=== PATIENT | male | born 1950 | race Caucasian/White ===

== ENCOUNTER 2019-05-25 06:13 | Inpatient (IN) ==
[2019-05-25] MEDS ORDERED: Ringers Solution, Lactated 1,000 ML IVC SCH ×2 (07:15→12:27)
[2019-05-25] MEDS ORDERED: Albuterol 2.5 MG/3 ML NEBULIZER IH PRN (07:44)
[2019-05-25] MEDS ORDERED: Acetaminophen IV 1,000 MG/100 ML INFUS..BTL IVPB ONE (08:28)
[2019-05-25] MEDS ORDERED: Famotidine 20 MG/2 ML VIAL IVP ONE (08:28)
[2019-05-25] MEDS ORDERED: Pregabalin 75 MG CAPSULE PO ONE (08:29)
[2019-05-25] MEDS ORDERED: *HR* FentaNYL (PF) 100 MCG/2 ML VIAL ONE (08:46)
[2019-05-25] MEDS ORDERED: *HR* Propofol 200 MG/20 ML VIAL IVP ONE (08:47)
[2019-05-25] MEDS ORDERED: *HR* Midazolam HCl 2 MG/2 ML VIAL ONE (08:47)
[2019-05-25] MEDS ORDERED: *HR* PHENYLEPHRINE 1,000 MCG/10 ML SYRINGE IVP ONE ×3 (08:54→10:38)
[2019-05-25] MEDS ORDERED: Ondansetron 4 MG/2 ML VIAL ONE (08:59)
[2019-05-25] MEDS ORDERED: Lidocaine -MPF 2% 2 ML VIAL ONE (08:59)
[2019-05-25] MEDS ORDERED: Dexamethasone 4 MG/ML VIAL ONE (08:59)
[2019-05-25] MEDS ORDERED: Calcium Gluconate 1,000 MG/10 ML VIAL ONE (09:06)
[2019-05-25] MEDS ORDERED: Ethanol\\Acetic Acid\\Na Ace\\Ben 1,000 ML IRRIG.SOLN IR ONE (09:24)
[2019-05-25] MEDS ORDERED: Propofol 500 MG/50 ML INFUS..BTL ONE (09:25)
[2019-05-25] MEDS ORDERED: *HR* Phenylephrine 10 MG/ML VIAL ONE (10:17)
[2019-05-25] MEDS ORDERED: EPHEDrine 50 MG/ML VIAL ONE (10:29)
[2019-05-25 11:55] LABS: Hematocrit 30.4 % (37.5-50.1); Hemoglobin 10.1 g/dL (12.9-16.9)
[2019-05-25] MEDS ORDERED: *HR* Promethazine 25 MG/ML VIAL IVP PRN (12:27)
[2019-05-25] MEDS ORDERED: Nitroglycerin 0.4 MG TAB.SUBL SL PRN (12:27)
[2019-05-25] MEDS ORDERED: traMADol 50 MG TABLET PO PRN (12:27)
[2019-05-25] MEDS ORDERED: D5% in Water 1,000 ML IVC PRN (12:27)
[2019-05-25] MEDS ORDERED: (Dulaglutide [Trulicity] 1.5 MG) SQ SCH (12:27)
[2019-05-25] MEDS ORDERED: Ascorbic Acid 500 MG TABLET PO SCH (12:27)
[2019-05-25] MEDS ORDERED: Fluticasone Propionate Nasal 50 MCG/SPRAY BOTTLE NS PRN (12:27)
[2019-05-25] MEDS ORDERED: Ondansetron 4 MG/2 ML VIAL IVP PRN (12:27)
[2019-05-25] MEDS ORDERED: *HR* Dextrose 50 % in Water (Syg) 50 ML SYRINGE IVP PRN (12:27)
[2019-05-25] MEDS ORDERED: Sennosides 8.6 MG TABLET PO PRN (12:27)
[2019-05-25] MEDS ORDERED: Dextrose Gel 15 GM/37.5 ML TUBE PO PRN ×2 (12:27)
[2019-05-25] MEDS ORDERED: Temazepam 15 MG CAPSULE PO PRN (12:27)
[2019-05-25] MEDS ORDERED: NON-FORMULARY MEDICATION 1 EACH EACH (Omega-3/Dha/Epa/Fish Oil [Fish Oil 1,000 Mg Softgel] PO SCH (12:27)
[2019-05-25] MEDS ORDERED: [UNRECOGNIZED DRUG - OTHER] PO SCH (12:27)
[2019-05-25] MEDS ORDERED: Naloxone 0.4 MG/ML INJ IVP PRN (12:27)
[2019-05-25] MEDS ORDERED: MOM Conc 10 ML UD.LIQ PO PRN (12:27)
[2019-05-25] MEDS: Insulin LISPRO 300 UNITS/3 ML VIAL SQ SCH ×3 (12:30→21:37)
[2019-05-25] MEDS: *HR* OxyCODONE Immed Rel 5 MG TABLET PO PRN ×2 (12:39→18:13)
[2019-05-25] MEDS: Cholecalciferol (D-3) 1,000 UNIT (25MCG) TABLET PO SCH (13:33)
[2019-05-25] MEDS: Ascorbic Acid 500 MG TABLET PO SCH (13:34)
[2019-05-25] MEDS: Multivit/Ca/Min/Fe/FA 1 TAB TABLET PO SCH (13:34)
[2019-05-25] MEDS: Psyllium 1 PACKET POWD.PACK PO SCH ×3 (13:34→21:31)
[2019-05-25] MEDS: Gabapentin 300 MG CAPSULE PO SCH ×3 (13:34→21:31)
[2019-05-25] MEDS: Magnesium Oxide 400 MG TABLET PO SCH ×4 (13:41→21:31)
[2019-05-25] MEDS: Budesonide/Formoterol 80/4.5 1 PUFF INH IH SCH ×2 (16:40→21:47)
[2019-05-25] MEDS ORDERED: NON-FORMULARY MEDICATION 1 EACH EACH (Cetirizine Hcl [Allergy Relief] 10 MG) PO SCH (18:00)
[2019-05-25] MEDS: Lisinopril-HCTZ 20-12.5mg TABLET PO SCH (18:12)
[2019-05-25] MEDS: Metoprolol XL (24 HR) Succ 50 MG TAB.ER.24H PO SCH (18:12)
[2019-05-25] MEDS: *HR* Metformin 500 MG TABLET PO SCH (18:12)
[2019-05-25] MEDS: Loratadine 10 MG TABLET PO SCH (18:12)
[2019-05-25] MEDS: Famotidine 20 MG TABLET PO SCH (18:13)
[2019-05-25] MEDS: Patient Taking Own Medication 1 EACH PO SCH (18:15)
[2019-05-25] MEDS: Insulin DETEMIR 100 UNIT/ML X5UNITS SQ SCH (18:22)
[2019-05-25] MEDS: HYDROcodone BIT/Homatropine 5 MG TABLET PO PRN (21:37)
[2019-05-26] MEDS: *HR* OxyCODONE Immed Rel 5 MG TABLET PO PRN ×4 (02:54→21:32)
[2019-05-26 05:08] LABS: Basophils % 0.3 %; Eosinophils # 0.1 K/mcL (0.0-0.6); Eosinophils % 0.9 %; Hematocrit 25.3 % (37.5-50.1); Immature Granulocytes % 0.4 % (0-4); Lymphocytes # 1.1 K/mcL (0.6-4.6); Lymphocytes % 11.9 %; Mean Corpuscular HGB Conc 33.6 g/dL (31.6-35.5); Mean Corpuscular Hemoglobin 29.8 pg (28.0-33.3); Mean Corpuscular Volume 88.8 fL (83.0-100.0); Mean Platelet Volume 10.1 fL (9.4-12.4); Monocytes # 0.7 K/mcL (0.0-1.3); Monocytes % 8.1 %; Platelet Count 187 K/mcL (140-400); Red Blood Count 2.85 M/mcL (4.19-5.50); Red Cell Distribution Width 14.6 % (11.5-14.5); Segmented Neutrophils % 78.4 %; White Blood Count 8.9 K/mcL (4.3-11.1)
[2019-05-26 05:12] LABS: Hemoglobin 8.5 g/dL (12.9-16.9)
[2019-05-26 05:28] LABS: BUN/Creatinine Ratio 17 (6-26); Blood Urea Nitrogen 19 mg/dL (8-23); Calcium 8.3 mg/dL (8.6-10.3); Carbon Dioxide 24 mEq/L (23-29); Chloride 98 mEq/L (98-107); Glucose 135 mg/dL (70-105); Osmolality,Calculated 270 (280-300); Potassium 4.3 mEq/L (3.5-5.1); Sodium 128 mEq/L (136-145); eGFR For African Americans > 60 (> 60); eGFR For Non-African Americans > 60 (> 60)
[2019-05-26] MEDS: Budesonide/Formoterol 80/4.5 1 PUFF INH IH SCH ×2 (07:47→22:48)
[2019-05-26] MEDS: Insulin LISPRO 300 UNITS/3 ML VIAL SQ SCH ×4 (08:08→21:28)
[2019-05-26] MEDS: *HR* Metformin 500 MG TABLET PO SCH ×2 (08:45→16:47)
[2019-05-26] MEDS: Apixaban 5 MG TABLET PO SCH ×2 (08:45→21:27)
[2019-05-26] MEDS: Ascorbic Acid 500 MG TABLET PO SCH (08:45)
[2019-05-26] MEDS: Multivit/Ca/Min/Fe/FA 1 TAB TABLET PO SCH (08:45)
[2019-05-26] MEDS: Magnesium Oxide 400 MG TABLET PO SCH ×4 (08:45→21:27)
[2019-05-26] MEDS: Gabapentin 300 MG CAPSULE PO SCH ×3 (08:45→21:27)
[2019-05-26] MEDS: Psyllium 1 PACKET POWD.PACK PO SCH ×3 (08:45→21:28)
[2019-05-26] MEDS: Cholecalciferol (D-3) 1,000 UNIT (25MCG) TABLET PO SCH (08:45)
[2019-05-26] MEDS: Lisinopril-HCTZ 20-12.5mg TABLET PO SCH (16:47)
[2019-05-26] MEDS: Loratadine 10 MG TABLET PO SCH (16:47)
[2019-05-26] MEDS: Famotidine 20 MG TABLET PO SCH (16:47)
[2019-05-26] MEDS: Insulin DETEMIR 100 UNIT/ML X5UNITS SQ SCH (16:47)
[2019-05-26] MEDS: Metoprolol XL (24 HR) Succ 50 MG TAB.ER.24H PO SCH (16:47)
[2019-05-26] MEDS: Patient Taking Own Medication 1 EACH PO SCH (16:50)
[2019-05-27 04:50] LABS: Basophils % 0.2 %; Eosinophils # 0.3 K/mcL (0.0-0.6); Eosinophils % 2.8 %; Hematocrit 23.3 % (37.5-50.1); Hemoglobin 7.7 g/dL (12.9-16.9); Immature Granulocytes % 0.8 % (0-4); Lymphocytes # 1.3 K/mcL (0.6-4.6); Lymphocytes % 12.1 %; Mean Corpuscular Hemoglobin 29.5 pg (28.0-33.3); Mean Corpuscular Volume 89.3 fL (83.0-100.0); Mean Platelet Volume 9.9 fL (9.4-12.4); Monocytes # 1.1 K/mcL (0.0-1.3); Monocytes % 10.6 %; Neutrophils # 7.6 K/mcL (1.6-8.9); Platelet Count 153 K/mcL (140-400); Red Blood Count 2.61 M/mcL (4.19-5.50); Red Cell Distribution Width 14.7 % (11.5-14.5); Segmented Neutrophils % 73.5 %; White Blood Count 10.4 K/mcL (4.3-11.1)
[2019-05-27 05:13] LABS: Calcium 8.2 mg/dL (8.6-10.3); Potassium 4.6 mEq/L (3.5-5.1)
[2019-05-27] MEDS: Apixaban 5 MG TABLET PO SCH ×2 (07:42→20:30)
[2019-05-27] MEDS: *HR* Metformin 500 MG TABLET PO SCH ×2 (07:43→16:37)
[2019-05-27] MEDS: Magnesium Oxide 400 MG TABLET PO SCH ×4 (07:43→20:30)
[2019-05-27] MEDS: Gabapentin 300 MG CAPSULE PO SCH ×3 (07:43→20:30)
[2019-05-27] MEDS: Multivit/Ca/Min/Fe/FA 1 TAB TABLET PO SCH (07:43)
[2019-05-27] MEDS: Ascorbic Acid 500 MG TABLET PO SCH (07:44)
[2019-05-27] MEDS: Psyllium 1 PACKET POWD.PACK PO SCH ×3 (07:44→20:30)
[2019-05-27] MEDS: Insulin LISPRO 300 UNITS/3 ML VIAL SQ SCH ×4 (07:47→20:20)
[2019-05-27] MEDS: Cholecalciferol (D-3) 1,000 UNIT (25MCG) TABLET PO SCH (07:52)
[2019-05-27] MEDS: *HR* OxyCODONE Immed Rel 5 MG TABLET PO PRN ×2 (07:52→20:29)
[2019-05-27] MEDS: Budesonide/Formoterol 80/4.5 1 PUFF INH IH SCH ×2 (08:08→20:09)
[2019-05-27] MEDS ORDERED: 0.9 % Sodium Chloride 1,000 ML ONE (11:33)
[2019-05-27] MEDS ORDERED: 0.9 % Sodium Chloride 1,000 ML IV ONE (11:37)
[2019-05-27 12:14] LABS: Hematocrit 23.6 % (37.5-50.1); Hemoglobin 8.1 g/dL (12.9-16.9)
[2019-05-27 13:27] LABS: Albumin 3.3 g/dL (3.5-5.7); Albumin/Globulin Ratio 1.4 (1.1-2.2); Bilirubin,Total 0.6 mg/dL (0.3-1.0); Calcium 8.2 mg/dL (8.6-10.3); Globulin 2.4 g/dL (2.4-3.5); Potassium 4.4 mEq/L (3.5-5.1); Total Protein 5.7 g/dL (6.4-8.9)
[2019-05-27] MEDS ORDERED: 0.9 % Sodium Chloride 250 ML ONE (13:59)
[2019-05-27] MEDS: Famotidine 20 MG TABLET PO SCH (16:36)
[2019-05-27] MEDS: Loratadine 10 MG TABLET PO SCH (16:37)
[2019-05-27] MEDS: Metoprolol XL (24 HR) Succ 50 MG TAB.ER.24H PO SCH (16:37)
[2019-05-27] MEDS: Lisinopril-HCTZ 20-12.5mg TABLET PO SCH (16:37)
[2019-05-27] MEDS: Insulin DETEMIR 100 UNIT/ML X5UNITS SQ SCH (16:45)
[2019-05-27] MEDS: Patient Taking Own Medication 1 EACH PO SCH (17:07)
[2019-05-28 04:32] LABS: Hematocrit 23.1 % (37.5-50.1); Hemoglobin 7.7 g/dL (12.9-16.9); Mean Corpuscular HGB Conc 33.3 g/dL (31.6-35.5); Mean Corpuscular Hemoglobin 29.7 pg (28.0-33.3); Mean Corpuscular Volume 89.2 fL (83.0-100.0); Platelet Count 154 K/mcL (140-400); Red Blood Count 2.59 M/mcL (4.19-5.50); Red Cell Distribution Width 14.9 % (11.5-14.5); White Blood Count 9.6 K/mcL (4.3-11.1)
[2019-05-28 04:51] LABS: BUN/Creatinine Ratio 33 (6-26); Blood Urea Nitrogen 40 mg/dL (8-23); Carbon Dioxide 23 mEq/L (23-29); Chloride 95 mEq/L (98-107); Glucose 81 mg/dL (70-105); Osmolality,Calculated 269 (280-300); Potassium 4.1 mEq/L (3.5-5.1); Sodium 125 mEq/L (136-145); eGFR For African Americans > 60 (> 60); eGFR For Non-African Americans > 60 (> 60)
[2019-05-28] MEDS: *HR* Metformin 500 MG TABLET PO SCH ×2 (08:34→16:34)
[2019-05-28] MEDS: Cholecalciferol (D-3) 1,000 UNIT (25MCG) TABLET PO SCH (08:34)
[2019-05-28] MEDS: Apixaban 5 MG TABLET PO SCH (08:34)
[2019-05-28] MEDS: Multivit/Ca/Min/Fe/FA 1 TAB TABLET PO SCH (08:34)
[2019-05-28] MEDS: Magnesium Oxide 400 MG TABLET PO SCH ×3 (08:34→16:35)
[2019-05-28] MEDS: Ascorbic Acid 500 MG TABLET PO SCH (08:34)
[2019-05-28] MEDS: Gabapentin 300 MG CAPSULE PO SCH ×2 (08:36→16:35)
[2019-05-28] MEDS: Psyllium 1 PACKET POWD.PACK PO SCH ×2 (08:36→16:33)
[2019-05-28] MEDS: Insulin LISPRO 300 UNITS/3 ML VIAL SQ SCH ×3 (08:36→16:49)
[2019-05-28] MEDS: Budesonide/Formoterol 80/4.5 1 PUFF INH IH SCH (10:31)
[2019-05-28] MEDS ORDERED: 0.9 % Sodium Chloride 250 ML ONE (11:31)
[2019-05-28] MEDS: HYDROcodone BIT/Homatropine 5 MG TABLET PO PRN (11:33)
[2019-05-28 15:26] VITALS: BP 131/57
[2019-05-28] MEDS: Loratadine 10 MG TABLET PO SCH (16:34)
[2019-05-28] MEDS: Metoprolol XL (24 HR) Succ 50 MG TAB.ER.24H PO SCH (16:34)
[2019-05-28] MEDS: Lisinopril-HCTZ 20-12.5mg TABLET PO SCH (16:35)
[2019-05-28] MEDS: Famotidine 20 MG TABLET PO SCH (16:35)
[2019-05-28] MEDS: Patient Taking Own Medication 1 EACH PO SCH (16:35)
[2019-05-28] MEDS: *HR* OxyCODONE Immed Rel 5 MG TABLET PO PRN (16:39)
[2019-05-28] MEDS: Insulin DETEMIR 100 UNIT/ML X5UNITS SQ SCH (16:40)
== END 2019-05-28 16:40 | DRG 470 ==
LOC: SAMDAY 06:13 → 3NENU 11:58
PROVIDERS: ADMIT Orthopaedic Surgery; ATTEND Orthopaedic Surgery